=== PATIENT | female | born 1955 | race African-American/Black ===

== ENCOUNTER 2020-07-11 19:48 | Observation (INO) ==
[2020-07-11 22:35] LABS: Basophils # 0.1 10*3/uL (0.0-0.2); Basophils % 0.8 % (0.0-0.8); Eosinophils # 0.2 10*3/uL (0.0-0.87); Hematocrit 38.4 VOL% (35.7-47.0); Hemoglobin 13.4 GM/DL (12.0-16.0); Immature Granulocytes % 0.6 %; Immature Granulocytes Absolute 0.07 #; Lymphocytes # 3.6 10*3/uL (1.4-4.0); Lymphocytes % 30.3 % (21.3-54.2); Mean Corpuscular HGB Conc 34.9 GM/DL (32-36); Mean Corpuscular Volume 89.9 FL (87-102); Mean Platelet Volume 10.4 FL (9.6-12.0); Monocytes % 7.1 % (1.7-12.7); Neutrophils % 59.2 % (38.7-73.9); Platelet Count 272 T/CUMM (130-400); Red Blood Count 4.27 MC/CUMM (3.8-5.5); Red Cell Distribution Width 13.8 % (9.3-17.3); White Blood Count 11.9 T/CUMM (4-12)
[2020-07-11 22:46] LABS: PT Patient Result 10.3 SECS (9.8-11.9); Partial Thromboplastin Time 28.7 SECS (23.9-33.8)
[2020-07-11] MEDS ORDERED: traZODone 50 MG TABLET PO PRN (22:46)
[2020-07-11] MEDS ORDERED: hydrALAZINE 20 MG/1 ML VIAL IV PRN (22:46)
[2020-07-11] MEDS ORDERED: ATORVASTATIN 10 MG TABLET PO SCH (23:00)
[2020-07-11 23:04] LABS: Calcium 8.7 MG/DL (8.5-10.1)
[2020-07-12] MEDS ORDERED: ACETAMINOPHEN 325 MG TABLET PO PRN (00:09)
[2020-07-12] MEDS ORDERED: guaiFENesin/DM ER 600-30 MG TABLET PO PRN (00:09)
[2020-07-12] MEDS ORDERED: ZALEPLON 5 MG CAPSULE PO PRN (00:09)
[2020-07-12] MEDS ORDERED: ALBUTEROL 2.5 MG/3 ML NEB RESP TX PRN (00:09)
[2020-07-12] MEDS ORDERED: GLUCAGON 1 MG VIAL IM PRN (00:09)
[2020-07-12] MEDS ORDERED: SIMETHICONE CHEW 125 MG TABLET PO PRN (00:09)
[2020-07-12] MEDS ORDERED: NICOTINE 21 MG/24 HR PATCH TRANSDERM PRN (00:09)
[2020-07-12] MEDS ORDERED: ONDANSETRON 4 MG/2 ML VIAL IV PRN (00:09)
[2020-07-12] MEDS ORDERED: DEXTROSE 50% 25 GM/50 ML VIAL IV PRN (00:09)
[2020-07-12] MEDS ORDERED: ALUMINUM/MAGNES/SIMETH MAX STR 30 ML UDCUP PO PRN (00:09)
[2020-07-12] MEDS ORDERED: DOCUSATE SODIUM 100 MG CAPSULE PO PRN (00:09)
[2020-07-12 05:34] LABS: Basophils # 0.1 10*3/uL (0.0-0.2); Basophils % 0.7 % (0.0-0.8); Eosinophils # 0.2 10*3/uL (0.0-0.87); Eosinophils % 2.3 % (0.00-10.9); Hematocrit 37.9 VOL% (35.7-47.0); Immature Granulocytes % 0.5 %; Immature Granulocytes Absolute 0.05 #; Lymphocytes # 3.4 10*3/uL (1.4-4.0); Lymphocytes % 33.7 % (21.3-54.2); Mean Corpuscular HGB Conc 34.3 GM/DL (32-36); Mean Corpuscular Volume 90.5 FL (87-102); Mean Platelet Volume 11.8 FL (9.6-12.0); Monocytes % 7.7 % (1.7-12.7); Neutrophils % 55.1 % (38.7-73.9); Platelet Count 208 T/CUMM (130-400); Red Blood Count 4.19 MC/CUMM (3.8-5.5); Red Cell Distribution Width 13.7 % (9.3-17.3); White Blood Count 10.2 T/CUMM (4-12)
[2020-07-12 06:18] LABS: Calcium 8.6 MG/DL (8.5-10.1); Osmolality,Calculated 284.8 MOS/KG (273-304); Thyroid Stimulating Hormone 5.75 uIU/ml (0.358-3.74)
[2020-07-12] MEDS ORDERED: LEVOTHYROXINE 100 MCG TABLET PO SCH (06:30)
[2020-07-12] MEDS ORDERED: PANTOPRAZOLE 40 MG TABLET PO SCH (09:00)
[2020-07-12] MEDS ORDERED: ENOXAPARIN 40 MG/0.4 ML SYRINGE SUBCUT SCH (09:00)
[2020-07-12] MEDS ORDERED: acetaZOLAMIDE 250 MG TABLET PO SCH (09:00)
[2020-07-12] MEDS ORDERED: LOSARTAN 25 MG TABLET PO SCH (09:00)
[2020-07-12] MEDS ORDERED: ASPIRIN EC 81 MG TABLET PO SCH (09:00)
[2020-07-12 12:16] VITALS: BP 135/66
== END 2020-07-12 12:47 | disposition home or self-care (01) ==
LOC: N.TELES
PROVIDERS: ADMIT Internal Medicine; ATTEND Internal Medicine